=== PATIENT | male | born 1955 | race Hispanic/Latino ===

== ENCOUNTER 2024-04-15 21:27 | Emergency (ER) | payer MEDICARE, OTHER ==
[~2024-04-15] VITALS: Ht 167.6 cm; Wt 83.9 kg
[~2024-04-15 21:27] MED LIST: INSU100V SQ
--- NOTE | 2024-04-15 21:27 | NUR ---
CODE STROKE CALLED IN ED13
--- NOTE | 2024-04-15 21:28 | NUR ---
BS 80
--- NOTE | 2024-04-15 21:30 | NUR ---
PATIENT TO CT ACOMPANIED BY PRIMARY NURSE
--- NOTE | 2024-04-15 21:36 | NUR ---
PATIENT BACK FROM CT
[2024-04-15 21:42] LABS: BASOPHILS # (AUTO) 0.04 K/uL (0.00-0.20); BASOPHILS % (AUTO) 0.5 % (0.0-5.0); EOSINOPHILS # (AUTO) 0.14 K/uL (0.00-0.70); EOSINOPHILS % (AUTO) 1.8 % (0.0-8.0); HEMATOCRIT 44.8 % (42-54); IMMATURE GRANULOCYTE ABSOLUTE 0.08 K/uL (0-1); LYMPHOCYTES # (AUTO) 2.5 K/uL (1.0-4.8); LYMPHOCYTES % (AUTO) 32.5 % (21.0-51.0); MEAN CORPUSCULAR HEMOGLOBIN 31.1 pg (27.0-33.0); MEAN CORPUSCULAR HGB CONC 32.4 g/dL (32.0-36.0); MEAN CORPUSCULAR VOLUME 96.1 fL (79-99); MONOCYTES # (AUTO) 0.9 K/uL (0.1-1.0); MONOCYTES % (AUTO) 11.4 % (3.0-13.0); NEUTROPHILS # (AUTO) 4.1 K/uL (1.8-7.7); NEUTROPHILS % (AUTO) 52.8 % (40.0-77.0); PLATELET COUNT (AUTO) 259 K/uL (130-400); RED BLOOD CELL COUNT(AUTO) 4.66 MIL/uL (4.50-6.20); RED CELL DISTRIBUTION WIDTH 13.6 % (11.0-15.5); WHITE BLOOD COUNT (AUTO) 7.8 K/uL (4.8-10.8)
--- NOTE | 2024-04-15 21:46 | HMCIMG ---
CT HEAD/BRAIN W/O CONTRAST CLINICAL HISTORY: CODE STROKE COMPARISON: None TECHNIQUE: Multiple sequential axial images of the head were obtained from the base of the skull through vertex. CT was performed with one or more of the following dose reduction techniques: automated exposure control, adjustment of the mA and/or kV according to patient size, or use of iterative reconstruction technique FINDINGS: There is mild atrophy and small vessel disease. The orbital contents, paranasal sinuses and mastoid air cells are within normal limits. The calvarium is intact. Note is made of a small posterior superior scalp hematoma or area of calcification. IMPRESSION: There is no acute intracranial abnormality. Small area of posterior superior scalp calcification or hematoma.
[2024-04-15 21:52] LABS: POTASSIUM 4.7 mmol/L (3.5-5.1)
[2024-04-15 22:02] LABS: INR 1.03 (0.85-1.15); PROTHROMBIN TIME 10.9 SEC (9.6-11.6)
[2024-04-15 22:03] LABS: PARTIAL THROMBOPLASTIN TIME 26.1 SEC (26.3-35.5)
[2024-04-15 22:05] LABS: B-TYPE NATRIURETIC PEPTIDE 30 pg/mL (0-100)
--- NOTE | 2024-04-15 22:09 | CONS ---
CONSULT NOTE: [facility] Note # Demographics Consult Type: Acute Stroke Level 1 (0-4.5 hrs) Patient Location: Emergency Room First Name: NACHO Last Name: PANCHO Date of : 1955 Age: 68 Gender: Male Facility: [facility] Time of Initial Page (Central Time): 04/15/2024 21:47 Time of Return Call (Central Time): 04/15/2024 21:48 # HPI History: 68yom with HTN, DM who p/w L facial droop, dysarthria. Last Known Normal: - I have collected independent history specific to time last normal or last known well. We have collaborated with the provider and at this time, we have the most current timeline with the information that is available. 1930 # Scores Time of exam and NIHSS (Central Time): 04/15/2024 21:49 Level of Consciousness 1a: [0] = Alert; keenly responsive LOC Questions 1b: [0] = Answers both questions correctly LOC Commands 1c: [0] = Performs both tasks correctly Best Gaze 2: [0] = Normal Visual 3: [0] = No visual loss Facial Palsy 4: [1] = Minor paralysis Motor Arm Left 5a: [0] = No drift Motor Arm Right 5b: [0] = No drift Motor Leg Left 6a: [0] = No drift Motor Leg Right 6b: [0] = No drift Limb Ataxia 7: [0] = Absent Sensory 8: [0] = Normal Best Language 9: [0] = No aphasia Dysarthria 10: [1] = [id number] dysarthria Extinction and Inattention 11: [0] = No abnormality NIHSS Total: 2 # Data Head CT: - no bleed - preliminarily reviewed by me, please refer to radiology read for official reading # Assessment Impression: In patients presenting with high risk TIA or minor stroke, treatment for 21 days with dual antiplatelet therapy (aspirin and plavix) begun can be beneficial for early secondary stroke prevention (CHANCE 2013, POINT 2018). Patient and I discussed thrombolytic therapy and pt preferred DAPT given nondisabling symptoms. Per PRISMS and VICKI studies, there is no evidence that thrombolytics is beneficial in comparison to antiplatelet in improving neurologic outcomes in patients with mild, non-disabling strokes at 90 days wh ile there is more clear evidence for harm in the form of symptomatic ICH. # Plan Thrombolytic/Intervention: Possible IA candidate Thrombolytic Exclusion (< 3 hour window): - Individualized disability discussion had with the patient and/or family, and they have determined the current deficits to be non-disabling and do not wish to proceed with thrombolytic Possible IA Candidate: - CTA pending - If CTA shows large vessel occlusion, notify neurology and/or neuro- interventional team, per hospital protocol. Target Blood Pressure: - SBP < 220 - DBP < 120 Labs: - lipid panel - hemoglobin A1c - CBC - basic metabolic panel - urine drug screen - troponin Imaging: (urgency: STAT): - CT Angiogram Head and CT Angiogram Neck AND call back with results if abnormal Imaging: (urgency: routine): - MRI Brain without contrast Diagnostic Test: - echo with bubble study Therapy/Evaluation: - PT/OT evaluation - speech/swallow consultation Medication: - Plavix 300 mg PO x1 now, then 75 mg daily x 21 days + asa 81mg x 21 days, followed by monotherapy thereafter - start statin with goal of LDL < 70 Other: - If patient has any neurological deterioration please call me back immediately - permissive hypertension - telemetry monitoring - LDL < 70 - I have discussed my recommendations with the referring provider - provide smoking cessation resources and counseling to patient Additional Recommendations: - Permissive HTN for next 24-48 hours, then gradual control by no more than 15% daily monitoring for neurological stability - Avoid dehydration and relative hypotension - Risk factor modification, including smoking cessation and alcohol moderation if appropriate - Monitor glucose and correct as needed - If cryptogenic non-lacunar stroke on MRI, obtain outpatient cardiac monitoring for a fib # Demographics First Name: NACHO Last Name: PANCHO Facility: [facility] RAFAEL CASTELLANOS MD Apr 15, 2024 22:09
[2024-04-15] MEDS ORDERED: IOHEXOL 350 MG/ML 100ML INFUS..BTL IV ONE (22:15)
--- NOTE | 2024-04-15 22:58 | HMCIMG ---
CT ANGIO HEAD AND NECK HISTORY: TIA COMPARISON: None TECHNIQUE: CT angiography of the head was performed. The study was performed using angiographic technique with maximum intensity projection reconstruction images. Patient was given 1002 cc of Omnipaque through intravenous route. FINDINGS: The ventricles and extraventricular CSF spaces are nondilated for patient's age. There is no midline shift, mass effect or herniation. No acute intracranial bleed is seen. Visualized portion of the paranasal sinuses are grossly within normal limits. No CT evidence of cerebral aneurysm or abnormal arteriovenous communication is seen. Diffuse atherosclerosis changes are present. Vertebrobasilar arterial system is grossly within normal limits. IMPRESSION: CTA Head 1. Atherosclerotic disease. Otherwise unremarkable CTA of the brain. TECHNIQUE: CT angiography of the neck was performed. The study was performed using angiographic technique with maximum intensity projection reconstruction images. FINDINGS: There are degenerative changes of the cervical spine. Parapharyngeal fat planes are preserved bilaterally. The airway is patent. Normal enhancement of the thyroid gland is noted. Visualized portion of the lung apices are unremarkable. The common, internal and external carotid arteries are visualized. Approximately 40% stenosis is seen of the internal carotid arteries bilaterally with calcified plaques. Both vertebral arteries are seen with antegrade flow. IMPRESSION: CTA Neck 1. Atherosclerotic disease. Approximately 40% stenosis is seen of the internal carotid arteries bilaterally. CT was performed with one or more following dose reduction techniques: automated exposure control, adjustment of the mA and kv according to patient's size, or use of a iterative reconstruction technique.
--- NOTE | 2024-04-15 23:09 | HMCIMG ---
CHEST 1VW HISTORY: Stroke COMPARISON: 03/19/2024 FINDINGS: A frontal projection of the chest was obtained. No acute pulmonary infiltrates is seen. The heart is borderline enlarged. Prominent interstitial markings are seen. Degenerative changes are seen. No evidence of aortic calcification is seen. IMPRESSION: 1. No acute pulmonary infiltrate is seen.
--- NOTE | 2024-04-15 23:46 | ERN ---
General Chief Complaint: Stroke Symptoms Stated Complaint: STROKE S/S Time Seen by MD: 21:30 History of Present Illness Initial Comments 68-year-old male came in for facial droop and dysarthria started 2 hours prior to arrival. Patient denies weakness in the upper and lower extremities. Patient was advised has no concerns. Allergies: Coded Allergies: venlafaxine (Unverified Allergy, Unknown, 03/19/24) Home Meds Active Scripts Insulin Lispro (Humalog) 100 Unit/Ml Vial, 10 UNIT SQ TIDAC, #15 VIAL Prov:KELLIE MUHAMMAD MD 03/22/24 Past Medical History Past Medical History: Diabetes-Type II, High Cholesterol, Heart Disease Past Surgical History: CABG Surgical History Other: BACK SURGERY ROS Dictation Dysarthria Physical Exam Physical Exam Dictation That has facial drooping and dysarthria 5/5 strength in the upper and lower extremities sensation intact Results Laboratory and Microbiology Lab and Micro Result Laboratory Tests Test 04/15/24 21:30 White Blood Count 7.8 K/uL (4.8-10.8) Red Blood Count 4.66 MIL/uL (4.50-6.20) Hemoglobin 14.5 g/dL (14.0-18.0) Hematocrit 44.8 % (42-54) Mean Corpuscular Volume 96.1 fL (79-99) Mean Corpuscular Hemoglobin 31.1 pg (27.0-33.0) Mean Corpuscular Hemoglobin Concent 32.4 g/dL (32.0-36.0) Red Cell Distribution Width 13.6 % (11.0-15.5) Platelet Count 259 K/uL (130-400) Mean Platelet Volume 8.9 fL (7.5-10.5) Immature Granulocyte % (Auto) 1.0 % (0-1) Neutrophils (%) (Auto) 52.8 % (40.0-77.0) Lymphocytes (%) (Auto) 32.5 % (21.0-51.0) Monocytes (%) (Auto) 11.4 % (3.0-13.0) Eosinophils (%) (Auto) 1.8 % (0.0-8.0) Basophils (%) (Auto) 0.5 % (0.0-5.0) Neutrophils # (Auto) 4.1 K/uL (1.8-7.7) Lymphocytes # (Auto) 2.5 K/uL (1.0-4.8) Monocytes # (Auto) 0.9 K/uL (0.1-1.0) Eosinophils # (Auto) 0.14 K/uL (0.00-0.70) Basophils # (Auto) 0.04 K/uL (0.00-0.20) Absolute Immature Granulocyte (auto 0.08 K/uL (0-1) Nucleated Red Blood Cells 0.0 % (0.0-0.19) Prothrombin Time 10.9 SEC (9.6-11.6) Prothromb Time International Ratio 1.03 (0.85-1.15) Activated Partial Thromboplast Time 26.1 SEC (26.3-35.5) L Sodium Level 140 mmol/L (136-145) Potassium Level 4.7 mmol/L (3.5-5.1) Chloride Level 104 mmol/L (101-111) Carbon Dioxide Level 33 mmol/L (21-32) H Blood Urea Nitrogen 21 mg/dL (7-18) H Creatinine 1.0 mg/dL (0.5-1.3) Glomerular Filtration Rate Calc 82 mL/min (>90) Random Glucose 88 mg/dL (70-105) Total Calcium 9.2 mg/dL (8.5-10.1) Total Creatine Kinase 59 U/L (21-232) # Troponin I High Sensitivity 9 ng/L (4-75) B-Type Natriuretic Peptide 30 pg/mL (0-100) LDL Cholesterol 51 mg/dL (0-99) MDM MDM: Differential diagnosis: Rationale: Tests considered and ordered secondary to shared decision making include: labs, ECG and radiology Previous outside records reviewed: Old ER visits. Risk of complication and/or morbidity or mortality of patient management: None Medications-Per medication reconciliation Need for hospitalization: Patient does meet criteria for hospitalization. Need for emergency major/minor surgery: No There are no social concerns with this patient. Prescription drug management Prescriptions will include symptomatic care Patient's prior external medical records from other ER visits were reviewed by me as indicated. Prior testing and results from previous visits were reviewed. Prior tests were taken into account with medical decision making and resource utilization, independent historian/historians were used to obtain complete medical history. I independently interpreted the test that were performed, results were reviewed by me and considered findings on radiology if ordered. Medical management and examination interpretation discussions were had by me with other qualified healthcare professionals as indicated for the patient's care. Patient is a an NIH of two as per teleneurologist patient likely had a stroke patient is a for tenecteplase with teleneurologist however patient refused. Patient will be transferred to [facility] as we do not have in-house Neurology. Patient was accepted by [facility] and will be transferred. ED Course Orders Procedure Category Date Status Time Ct Head/Brain W/O CT 04/15/24 Resulted Contrast 21:29 Vital Signs Per CPOE 04/15/24 Transmitted Routine 21:28 Cardiac Monitoring CPOE 04/15/24 Transmitted 21:28 Bedside Glucose CPOE 04/15/24 Transmitted Fingerstick 21:28 Oxygen By Nc/Pulse Ox CPOE 04/15/24 Transmitted 21:28 Saline Lock Iv CPOE 04/15/24 Transmitted 21:28 Nothing By Mouth DIET 04/16/24 Transmitted Breakfast Bedside Swallow Eval ST 04/15/24 Transmitted 21:28 Cbc With Differential LAB 04/15/24 Complete 21:28 12 Lead Ekg Tracing- EKG 04/15/24 Logged Technical 21:28 Neurology Consult CONPHYSVC 04/15/24 Transmitted 21:28 Pulse Ox(Continuous) RT 04/15/24 Transmitted 21:28 Npo W/Aspiration CPOE 04/15/24 Transmitted Precautions 21:28 Complete Nih Stroke CPOE 04/15/24 Transmitted Scale 21:28 Creatine Kinase, Total LAB 04/15/24 Complete 21:28 Troponin I High LAB 04/15/24 Complete Sensitivity 21:28 B-Type Natriuretic LAB 04/15/24 Complete Peptide 21:28 Ldl Direct LAB 04/15/24 Complete 21:28 Chest 1vw RAD 04/15/24 Resulted 21:28 Nihss Every Shift And CPOE 04/15/24 Transmitted PRN 21:28 Neurological Vs Q4hrs KIKI 04/15/24 Transmitted 21:28 Basic Metabolic Panel LAB 04/15/24 Complete 21:28 12 Lead Ekg Tracing- EKG 04/15/24 Logged Technical 21:31 Pt And Ptt LAB 04/15/24 Complete 21:31 Urinalysis LAB 04/15/24 Logged W/Microscopic 21:31 [place] Prov. Neuro CONPHYSVC 04/15/24 Transmitted Consult 21:48 Ct Angio Head And Neck CT 04/15/24 Resulted 22:04 Iohexol (Omnipaque) PHA 04/15/24 Complete 22:15 Aspirin 325mg Tab PHA 04/16/24 Transmitted (Aspirin 325mg Tab) 00:00 Clopidogrel 75mg Tab PHA 04/16/24 Transmitted (Plavix 75mg) 00:00 Current Medications Medications (Trade) Dose Ordered Sig/Rolo Route PRN Reason Start Time Stop Time Status Last Admin Dose Admin Iohexol (Omnipaque) 35,000 mg STK-MED ONCE IV 04/15/24 22:15 04/15/24 22:15 DC Vital Signs Date Time Temp Pulse Resp B/P (MAP) Pulse Ox O2 Delivery O2 Flow Rate FiO2 04/15/24 23:03 98.4 68 18 146/78 98 Room Air* 0 04/15/24 21:40 98.4 68 18 155/78 99 Room Air* 0 04/15/24 21:30 97.2 70 16 149/78 98 Room Air DX & DISP Disposition: Transfer Departure Impression: Primary Impression: CVA (cerebral vascular accident) Condition: Stable Referrals: SELF,REFERRAL (PCP) STAN RODRIGUEZ MD Apr 15, 2024 23:46
--- NOTE | 2024-04-16 00:20 | NUR ---
[facility] CALLED FOR PATIENT TRANSFER
[2024-04-16] MEDS: ASPIRIN 325MG TAB PO ONE (00:46)
[2024-04-16] MEDS: cloPIDOgrel 75MG TAB PO ONE (00:47)
[2024-04-16 00:50] VITALS: BP 136/76; PULSE 66; RESP 18; TEMP 98.5; O2SAT 96
--- NOTE | 2024-04-16 00:53 | NUR ---
[facility] HERE FOR PATIENT
--- NOTE | 2024-04-16 00:55 | NUR ---
REPORT GIVEN TO ELENA VALENTINE AT [facility]
--- NOTE | 2024-04-16 01:33 | EKG ---
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
== END 2024-04-16 00:55 | disposition short-term general hospital (02) ==
LOC: EDH 21:27
DX: I63.9 Cerebral infarction, unspecified (principal); E11.9 Type 2 diabetes mellitus without complications; E78.00 Pure hypercholesterolemia, unspecified; I10 Essential (primary) hypertension; Z79.02 Long term (current) use of antithrombotics/antiplatelets; Z79.4 Long term (current) use of insulin; Z95.1 Presence of aortocoronary bypass graft
CPT/HCPCS: 99285; 70450; 71045; 82550; 83721; 84484; 80048; 83880; 85025; 85610; 85730; 36415; 70496; 70498; 93005; Q9967